=== PATIENT | male | born 1995 | race African-American/Black ===

== ENCOUNTER 2020-04-06 18:59 | Emergency (ER) | payer SELFPAY ==
[2020-04-06 19:13] VITALS: BP 112/65; PULSE 82; TEMP 98; BMI 21.6
[2020-04-06] MEDS ORDERED: AZITHROMYCIN 250 MG TABLET PO ONE (19:23)
--- NOTE | 2020-04-06 19:23 | PDOC ---
History of Present Illness - General Chief Complaint: Urinary Problem Stated Complaint: UTI Time Seen by Provider: 04/06/20 19:14 History Source: Patient Exam Limitations: No Limitations - History of Present Illness Travel History: No Initial Comments: 04/06/20 19:18 HISTORY OF PRESENT ILLNESS: 24-year-old male denies medical history presents emergency department for evaluation of dysuria and penile discharge over the past 3 days. Patient reports he had unprotected oral and vaginal intercourse with 1 female partner over the past 6 months. Patient states he told his partner that he was having a penile discharge and he thought he may have an STI and he states she is aware that she should be tested as well. She is not here with him. Patient denies testicular pain, abdominal pain, hematuria or hematospermia. No recent travel or sick contacts. PAST MEDICAL HISTORY: Denies past medical history SURGICAL HISTORY: Denies ALLERGIES: No known drug allergies REVIEW OF SYSTEMS General/Constitutional: Denies fever or chills. Denies weakness, weight change. HEENT: Denies change in vision. Denies ear pain or discharge. Denies sore throat. Cardiovascular: Denies chest pain or shortness of breath. Respiratory: Denies cough, wheezing, or hemoptysis. Gastrointestinal: Denies nausea, vomiting, diarrhea or constipation. Denies rectal bleeding. Genitourinary: See HPI Musculoskeletal: Denies joint or muscle swelling or pain. Denies neck or back pain. Skin and breasts: Denies rash or easy bruising. Neurologic: Denies headache, vertigo, loss of consciousness, or loss of sensation. Psychiatric: Denies depression or anxiety. Endocrine: Denies increased thirst. Denies abnormal weight change. Hematologic/Lymphatic: Denies anemia, easy bleeding, or history of blood clots. Allergic/Immunologic: Denies hives or skin allergy. Denies latex allergy. PHYSICAL EXAM General Appearance: Well-appearing, appropriately dressed. No apparent distress, no intoxication. Gastrointestinal/Abdominal: Normal bowel sounds. Abdomen soft, non-distended. No tenderness or rebound tenderness. No organomegaly, pulsatile mass, guarding, hernia, hepatomegaly, splenomegaly. Circumcised penis. No testicular tenderness present. Thin white discharge present at the urinary meatus. No abnormality upon palpation of the spermatic cords. Past History - Medical History Allergies/Adverse Reactions: Allergies Allergy/AdvReac Type Severity Reaction Status Date / Time No Known Allergies Allergy Verified 04/06/20 19:13 Home Medications: Ambulatory Orders Tobramycin 0.3% Ophth Soln [Tobrex Ophthalmic Solution -] 1 drop OU Q4HWA #1 bottle 03/07/20 COPD: No - Psycho-Social/Smoking History Smoking History: Never smoked *Physical Exam - Vital Signs Last Vital Signs Temp Pulse Resp BP Pulse Ox 98 F 82 18 112/65 98 04/06/20 19:08 04/06/20 19:08 04/06/20 19:08 04/06/20 19:08 04/06/20 19:08 Medical Decision Making - Medical Decision Making 04/06/20 19:21 A/P: 24-year-old male for evaluation of penile discharge and dysuria Testicular exam is unremarkable Thin white discharge present from urinary meatus Urinalysis, GC, urine culture HIV, syphilis with RPR reflex Azithromycin 1 g orally now Ceftriaxone 250 mg IM now Discharge home Discharge - Discharge Information Problems reviewed: Yes Clinical Impression/Diagnosis: Exposure to sexually transmitted disease (STD) Condition: Stable Disposition: HOME - Admission No - Follow up/Referral - Patient Discharge Instructions Additional Instructions: You been treated today with azithromycin 1 g by mouth for treatment of presumed chlamydia You have been treated with Rocephin 250 mg injection for treatment of presumned gonorrhea The syphilis test, gonorrhea and chlamydia testing will not be completed for the next few days. You may call and leave message for return phone call with lab results. Be sure to be clear with your name, birthdate, and phone number Always use condoms with the partners Followup with [facility]/ST[facility]ARDESS or PMD in one week for reevaluation and retesting. - Post Discharge Activity
[2020-04-06] MEDS ORDERED: AZITHROMYCIN 250 MG TABLET ONE (19:31)
[2020-04-06] MEDS ORDERED: cefTRIAXone SODIUM 1 GM VIAL ONE (19:32)
[2020-04-06 21:43] LABS: URINE APPEARANCE CLEAR; URINE BILIRUBIN NEGATIVE (NEGATIVE); URINE COLOR YELLOW; URINE GLUCOSE (UA) NEGATIVE (NEGATIVE); URINE KETONE TRACE (NEGATIVE); URINE LEUK ESTERASE NEGATIVE (NEGATIVE); URINE NITRITE NEGATIVE (NEGATIVE); URINE PROTEIN NEGATIVE (NEGATIVE)
== END 2020-04-06 20:23 | disposition home or self-care (01) ==
LOC: JERFT 18:59
DX: Z20.2 Contact with and (suspected) exposure to infections with a predominantly sexual mode of transmission (principal)
CPT/HCPCS: 36415; 81003; 86780; 87086; 87389; 99283-25

== ENCOUNTER 2020-04-25 11:36 | Emergency (ER) | payer SELFPAY ==
--- NOTE | 2020-04-25 11:42 | PDOC ---
Rapid Medical Evaluation Time Seen by Provider: 04/25/20 11:39 Medical Evaluation: Allergies Allergy/AdvReac Type Severity Reaction Status Date / Time No Known Allergies Allergy Verified 04/06/20 19:13 04/25/20 11:39 I performed a brief in-person evaluation of this patient. 24 y/o male with headache after head got hit (closed in a door) by a hotel door 3 days ago. He denies any visual changes. Has vomiting 3 times. He states he has sensitivity to light. Pertinent physical exam findings: speaking in full sentences, A&Ox3, walking without ataxia, no slurred speech I have ordered the following: saline lock, Reglan, (hold benadryl since pt is driving), 1L of NS, CT head deferred to the discretion of the treating provider Patient to proceed to ED for further evaluation. Discharge Disposition - Diagnosis Headache - Referrals - Patient Instructions - Post Discharge Activity
[2020-04-25] MEDS ORDERED: METOCLOPRAMIDE HCL INJECTION 10 MG/2 ML VIAL IVPB ONE (11:43)
[2020-04-25] MEDS ORDERED: SODIUM CHLORIDE 0.9% 500 ML INFUS.BAG IV ONE (11:43)
[2020-04-25] MEDS ORDERED: ACETAMINOPHEN 1000 MG/100 ML VIAL (NON FORMULARY) IVPB ONE (11:43)
[2020-04-25 11:45] VITALS: BMI 21.6
[2020-04-25] MEDS ORDERED: METOCLOPRAMIDE HCL INJECTION 10 MG/2 ML VIAL ONE (12:24)
[2020-04-25] MEDS ORDERED: ACETAMINOPHEN INJECTION 100 ML IVPB ONE (12:24)
--- NOTE | 2020-04-25 12:58 | PDOC ---
History of Present Illness - General Chief Complaint: Headache Stated Complaint: HEADACHE (HIT BY DOOR) Time Seen by Provider: 04/25/20 11:39 History Source: Patient Exam Limitations: No Limitations Past History - Travel History Traveled outside of the country in the last 30 days: No Close contact w/someone who was outside of country & ill: No - Medical History Allergies/Adverse Reactions: Allergies Allergy/AdvReac Type Severity Reaction Status Date / Time No Known Allergies Allergy Verified 04/25/20 11:41 Home Medications: Ambulatory Orders Ibuprofen 600 mg PO Q6H #30 tablet 04/25/20 Metoclopramide HCl [Reglan -] 10 mg PO TID #21 tablet 04/25/20 COPD: No - Psycho-Social/Smoking History Smoking History: Current every day smoker Number of Cigarettes Smoked Daily: 1 Information on smoking cessation initiated: No - Substance Abuse Hx (Audit-C & DAST Scrn) How often the patient has a drink containing alcohol: Never Score: In Men: 4 or > Positive; In Women: 3 or > Positive: 0 Screen Result (Pos requires Nsg. Audit-10AR): Negative In the last yr the pt used illegal drug/Rx for NonMed reason: Yes Score: Yes response is considered Positive: 1 Screen Result (Positive result requires Nsg. DAST-10): Positive Review of Systems - Review of Systems Able to Perform ROS?: Yes Comments:: 04/25/20 15:02 CONSTITUTIONAL: Absent: fever, chills, diaphoresis, generalized weakness, malaise, loss of appetite HEENT: Absent: rhinorrhea, nasal congestion, throat pain, throat swelling, difficulty swallowing, mouth swelling, ear pain, eye pain, visual Changes CARDIOVASCULAR: Absent: chest pain, loss of consciousness, palpitations, irregular heart rate, peripheral edema RESPIRATORY: Absent: cough, shortness of breath, dyspnea with exertion, orthopnea, wheezing, stridor, hemoptysis GASTROINTESTINAL: Absent: abdominal pain, abdominal distension, nausea, vomiting, diarrhea, constipation, melena, hematochezia GENITOURINARY: Absent: dysuria, frequency, urgency, hesitancy, hematuria, flank pain, genital pain MUSCULOSKELETAL: Absent: myalgia, arthralgia, joint swelling SKIN: Absent: rash, itching, pallor HEMATOLOGIC/IMMUNOLOGIC: Absent: easy bleeding, easy bruising, lymphadenopathy, frequent infections ENDOCRINE: Absent: unexplained weight gain, unexplained weight loss, heat intolerance, cold intolerance NEUROLOGIC: Present: Headache Absent: focal weakness or paresthesias, dizziness, unsteady gait, seizure, mental status changes, bladder or bowel incontinence PSYCHIATRIC: Absent: anxiety, depression, suicidal or homicidal ideation, hallucinations. Is the patient limited Kenyan proficient: No *Physical Exam - Vital Signs Last Vital Signs Temp Pulse Resp BP Pulse Ox 97.9 F 84 16 140/63 100 04/25/20 11:42 04/25/20 11:42 04/25/20 11:42 04/25/20 11:42 04/25/20 11:42 - Physical Exam 04/25/20 16:16 GENERAL: Well developed, well nourished. Awake and alert. No acute distress. HEENT: Normocephalic, atraumatic. PERRLA, EOMI. No conjunctival pallor. Sclera are non- icteric. Moist mucous membranes. NECK: Supple. Full ROM. No nuchal rigidity. No lymphadenopathy. CARDIOVASCULAR: Regular rate and rhythm. No murmurs, rubs, or gallops. Distal pulses are 2+ and symmetric. PULMONARY: No evidence of respiratory distress. Lungs clear to auscultation bilaterally. No wheezing, rales or rhonchi. ABDOMINAL: Soft. Non-tender. Non-distended. No rebound or guarding. No organomegaly. Normoactive bowel sounds. MUSCULOSKELETAL Normal range of motion at all joints. No bony deformities or tenderness. No CVA tenderness. EXTREMITIES: No cyanosis. No clubbing. No edema. No calf tenderness. SKIN: Warm and dry. Normal capillary refill. No rashes. No jaundice. NEUROLOGICAL: Alert, awake, appropriate. Cranial nerves 2-12 intact. No deficits to light touch and temperature in face, upper extremities and lower extremities. No motor deficits in the in face, upper extremities and lower extremities. Normoreflexic in the upper and lower extremities. Normal speech. Toes are down-going bilaterally. Gait is normal without ataxia. PSYCHIATRIC: Cooperative. Good eye contact. Appropriate mood and affect. ED Treatment Course - Medications Given in the ED: ED Medications Discontinued Medications Generic Name Dose Route Start Last Admin Trade Name Freq PRN Reason Stop Dose Admin Metoclopramide HCl 10 mg 04/25/20 11:43 04/25/20 12:20 Reglan Injection - IVPB 04/25/20 11:44 10 mg ONCE ONE Administration Sodium Chloride 1,000 ml 04/25/20 11:43 04/25/20 12:20 Normal Saline - IV 04/25/20 11:44 1,000 ml ONCE ONE Administration Medical Decision Making - Medical Decision Making 04/25/20 16:17 Patient is 24-year-old male no past medical history presents to the ER for headache with associated nausea and vomiting after getting his head clot and a automatic door at the hotel he is staying up. He states that the door closed and hit both sides of his head as it was a double door. He states this was 3 days ago and is still having continued headache with associated nausea and vomiting. He has not been able to keep medicine down at home due to the pain. He also notes that he woke up this morning due to pain. Denies lightheadedness, loss of consciousness, neck pain, back pain. Admits to photophobia. A/P: Concussion On exam patient is neurologically intact with no focal deficits. No hemotympanum, strickland sign or raccoon sign. No nuchal rigidity. Given this accident happened 3 days ago, most likely a concussion however given the patient still having persistent nausea and vomiting, will obtain CT scan. Reglan, Ofirmev fluids given per RME. CT shows no acute pathology. Upon reevaluation patient's headache has subsided and he is asking to leave. We will discharge patient home with neurology follow-up. I discussed the physical exam findings, ancillary test results and final diagnoses with the patient. I answered all of the patient's questions. The patient was satisfied with the care received and felt comfortable with the discharge plan and treatment plan. The Patient agrees to follow up with the primary care physician/specialist within 24-72 hours. Return precautions were given. Discharge - Discharge Information Problems reviewed: Yes Clinical Impression/Diagnosis: Headache Qualifiers: Headache type: unspecified Headache chronicity pattern: acute headache Intractability: not intractable Qualified Code(s): R51 - Headache Concussion Qualifiers: Encounter type: initial encounter Loss of consciousness presence/duration: without LOC Qualified Code(s): S06.0X0A - Concussion without loss of consciousness, initial encounter Condition: Stable Disposition: HOME - Admission No - Additional Discharge Information Prescriptions: Ibuprofen 600 mg PO Q6H #30 tablet Metoclopramide HCl [Reglan -] 10 mg PO TID #21 tablet - Follow up/Referral Referrals: Chito Waggoner MD [Staff Physician] - - Patient Discharge Instructions Patient Printed Discharge Instructions: DI for Postconcussion Syndrome Additional Instructions: Your headache is most likely from a concussion. Please take the Reglan as directed to help with your headaches. You may also take ibuprofen 600 mg every 6 hours as needed for pain. Please get plenty of rest and avoid screens to give your brain a break. Please follow-up with neurology within a week for further management of your symptoms. Referrals been attached. Return to the ER for worsening headache, vomiting for any change in your symptoms - Post Discharge Activity Work/Back to School Note: Back to Work
[2020-04-25 14:36] VITALS: BP 121/72; PULSE 79; TEMP 98.1
== END 2020-04-25 15:14 | disposition home or self-care (01) ==
LOC: JER 11:36
PROC: 3E0333Z Introduction of Anti-inflammatory into Peripheral Vein, Percutaneous Approach (ICD-10-PCS; principal; 2020-04-25)
PROC: 3E033GC Introduction of Other Therapeutic Substance into Peripheral Vein, Percutaneous Approach (ICD-10-PCS; 2020-04-25)
DX: R51 Headache (principal); S06.0X0A Concussion without loss of consciousness, initial encounter
CPT/HCPCS: 70450-TC; 99284-25; J0131

== ENCOUNTER 2020-05-10 19:05 | Emergency (ER) | payer SELFPAY ==
[2020-05-10 19:10] VITALS: BP 126/74; PULSE 69; TEMP 98.1; BMI 21.6
--- OUTSIDE RECORDS SUMMARY | 2020-05-10 19:15 | XMS ---
:1995 Author Organization [facility] Support Name Relationship Address Phone [facility] Unavailable [address] [place] [address] MARK SWANSON MOTHER [address] [address] MARK SWANSON Mother [address] [place] [address] Re-disclosure Warning The records that you are about to access may contain information from federally- assisted alcohol or drug abuse programs. If such information is present, then the following federally mandated warning applies: This information has been disclosed to you from records protected by federal confidentiality rules (42 CFR part 2). The federal rules prohibit you from making any further disclosure of this information unless further disclosure is expressly permitted by the written consent of the person to whom it pertains or as otherwise permitted by 42 CFR part 2. A general authorization for the release of medical or other information is NOT sufficient for this purpose. The Federal rules restrict any use of the information to criminally investigate or prosecute any alcohol or drug abuse patient.The records that you are about to access may contain highly sensitive health information, the redisclosure of which is protected by Article 27-F of the [facility] Public Health law. If you continue you may haveaccess to information: Regarding HIV / AIDS; Provided by facilities licensed or operated by the [facility] Office of Mental Health; or Provided by the [facility] Office for People With Developmental Disabilities. If such information is present, then the following [facility] mandated warning applies: This information has been disclosed to you from confidential records which are protected by state law. State law prohibits you from making any further disclosure of this information without the specific written consent of the person to whom it pertains, or as otherwise permitted by law. Any unauthorized further disclosure in violation of state law may result in a fine or usp sentence or both. A general authorization for the release of medical or other information is NOT sufficient authorization for further disclosure. Insurance Providers Payer name Policy type Policy ID Covered Covered alliance party's Policy P ablerta / Coverage alliance party ID relationship to [employer] type [employer]ong SELF PAY SP INSURANCE
[2020-05-10] MEDS ORDERED: FLUCONAZOLE 150 MG TABLET PO ONE ×2 (19:42→19:48)
--- NOTE | 2020-05-10 19:43 | PDOC ---
History of Present Illness - General Chief Complaint: Edema Stated Complaint: STD TESTING Time Seen by Provider: 05/10/20 19:27 History Source: Patient Exam Limitations: Clinical Condition - History of Present Illness Initial Comments: 05/10/20 19:44 Patient with no significant past medical history present with complaint of swelling to lymph nodes of right groin for over a week. Patient was seen a month ago for STD testing treated empirically on ceftriaxone and azithromycin p.o. in the ER due to penile discharge and GC and chlamydia test sent was canceled by the lab due to not having right specimen. Patient was advised to come back for repeat testing but patient never showed up because he has been working. Denies any penile discharge now. Denies pain to swelling lymph node. Denies burning with urination, urinary frequency, urgency, testicular pain or swelling. Patient report his girlfriend was recently treated for yeast infection and he had unprotected sex with a girlfriend 2 days ago and girlfriend reported started itching again and thinks he might be given the yeast infection back to her. Denies any other symptoms at this time. Denies rash to genital a kim. Is this a multiple visit Asthma Patient?: No Past History - Medical History Allergies/Adverse Reactions: Allergies Allergy/AdvReac Type Severity Reaction Status Date / Time No Known Allergies Allergy Verified 05/10/20 19:05 Home Medications: Ambulatory Orders Ibuprofen 600 mg PO Q6H #30 tablet 04/25/20 Metoclopramide HCl [Reglan -] 10 mg PO TID #21 tablet 04/25/20 COPD: No - Psycho-Social/Smoking History Smoking History: Current every day smoker Have you smoked in the past 12 months: Yes Number of Cigarettes Smoked Daily: 0 Information on smoking cessation initiated: Yes - Substance Abuse Hx (Audit-C & DAST Scrn) How often the patient has a drink containing alcohol: Never Score: In Men: 4 or > Positive; In Women: 3 or > Positive: 0 Screen Result (Pos requires Nsg. Audit-10AR): Negative In the last yr the pt used illegal drug/Rx for NonMed reason: Yes Score: Yes response is considered Positive: 1 Screen Result (Positive result requires Nsg. DAST-10): Positive Review of Systems - Review of Systems Able to Perform ROS?: Yes Is the patient limited Korean proficient: No Constitutional: No: Chills, Fever, Malaise HEENTM: No: Symptoms Reported, See HPI, Eye Pain, Blurred Vision, Tearing, Recent change in vision, Double Vision, Cataracts, Ear Pain, Ocular Prothesis, Ear Discharge, Nose Pain, Nose Congestion, Tinnitus, Nose Bleeding, Hearing Loss, Throat Pain, Throat Swelling, Mouth Pain, Dental Problems, Difficulty Swallowing, Mouth Swelling, Other Respiratory: No: Symptoms reported, See HPI, Cough, Orthopnea, Shortness of Breath, SOB with Exertion, SOB at Rest, Stridor, Wheezing, Productive cough, Hemoptysis, Other Cardiac (ROS): No: Symptoms Reported, See HPI, Chest Pain, Edema, Irregular Heart Rate, Lightheadedness, Palpitations, Syncope, Chest Tightness, Other ABD/GI: No: Symptoms Reported, See HPI, Nausea, Abdominal cramping : Yes: Symptoms Reported, See HPI, Other (swollen right groin lymph node). No: Burning, Dysuria, Discharge, Frequency, Pain, Urgency, Testicular Mass, Testicular Swelling, Lesions, Testicular Pain Musculoskeletal: No: Symptoms Reported, Back Pain, Muscle Pain Integumentary: No: Symptoms Reported, See HPI, Lumps, Rash Neurological: No: Symptoms reported, Headache, Dizziness Hematologic/Lymphatic: Yes: Lymph Node Abnormalities (swollen right groin lymph node) All Other Systems: Reviewed and Negative *Physical Exam - Vital Signs Last Vital Signs Temp Pulse Resp BP Pulse Ox 98.1 F 69 16 126/74 100 05/10/20 19:06 05/10/20 19:06 05/10/20 19:06 05/10/20 19:06 05/10/20 19:06 - Physical Exam General Appearance: Yes: Nourished, Appropriately Dressed. No: Apparent Distress HEENT: positive: Normal ENT Inspection Neck: negative: Supple Respiratory/Chest: negative: Respiratory Distress, Accessory Muscle Use Gastrointestinal/Abdominal: positive: Normal Bowel Sounds, Flat. negative: Tender, Guarding, Rebound Male Genitalia: positive: normal genitalia, other (small 1mm nontender mobile lymphadenitis to right groin area. No testicular pain or swelling. No visible lesions. No discharge from penis.). negative: discharge, testicular tenderness, inguinal hernia Musculoskeletal: positive: Normal Inspection. negative: CVA Tenderness Extremity: positive: Normal Capillary Refill, Normal Inspection, Normal Range of Motion Integumentary: positive: Normal Color Neurologic: positive: Fully Oriented, Alert, Normal Mood/Affect, Normal Response, Motor Strength 5/5 Medical Decision Making - Medical Decision Making 05/10/20 19:46 Patient with no significant past medical history present with complaint of swelling to lymph nodes of right groin for over a week. Patient was seen a month ago for STD testing treated empirically on ceftriaxone and azithromycin p.o. in the ER due to penile discharge and GC and chlamydia test sent was canceled by the lab due to not having right specimen. Patient was advised to come back for repeat testing but patient never showed up because he has been working. Denies any penile discharge now. Denies pain to swelling lymph node. Denies burning with urination, urinary frequency, urgency, testicular pain or swelling. Patient report his girlfriend was recently treated for yeast i nfection and he had unprotected sex with a girlfriend 2 days ago and girlfriend reported started itching again and thinks he might be given the yeast infection back to her. Denies any other symptoms at this time. Denies rash to genital area. Exam significant for small 1mm nontender mobile lymphadenitis to right groin area. No testicular pain or swelling. No visible lesions. No discharge from penis. No inguinal hernia on exam. Patient had HIV and syphilis test done last month with negative results. We will repeat GC and chlamydia test today. Patient to be treated on Diflucan 150 mg p.o. due to girlfriend with yeast infection and feels he might be getting a yeast infection but has no symptoms of yeast infection. Patient stable for discharge with urology follow-up pending lab results Discharge - Discharge Information Problems reviewed: Yes Clinical Impression/Diagnosis: Exposure to sexually transmitted disease (STD), Lymphangitis of groin Condition: Stable Disposition: HOME - Admission No - Follow up/Referral Referrals: Yakov Lopez MD [Staff Physician] - - Patient Discharge Instructions Patient Printed Discharge Instructions: How to Detect and Treat STDs Additional Instructions: You will be contacted in a few days with urine STD results. You were treated today for possible yeast infection. Abstain from unprotected sex until lab results. Follow-up referred urologist for lymph node swelling in the groin area - Post Discharge Activity
== END 2020-05-10 19:50 | disposition home or self-care (01) ==
LOC: JER 19:05 → JERFT 19:05
DX: L03.324 Acute lymphangitis of groin (principal); Z20.2 Contact with and (suspected) exposure to infections with a predominantly sexual mode of transmission
CPT/HCPCS: 36415; 87086; 87491; 87591; 99283-25